=== PATIENT | male | born 1980 | race Caucasian/White ===

== ENCOUNTER 2018-08-29 09:04 | Emergency (ER) | payer MEDICAID ==
[~2018-08-29] VITALS: Ht 172.7 cm; Wt 76.2 kg
[2018-08-29 09:09] VITALS: BP_SYST 135; BP_SYST 148; BP_DIAS 101; BP_DIAS 92
--- NOTE | 2018-08-29 09:20 | NUR ---
PT AMBULATED TO ER BED 10
--- NOTE | 2018-08-29 09:21 | NUR ---
DR. CHAN BEDSIDE EVALUATING PT
[2018-08-29] MEDS ORDERED: ACYCLOVIR 200 MG CAP PO ONE (09:35)
[2018-08-29] MEDS ORDERED: predniSONE 20 MG TAB PO ONE (09:35)
--- NOTE | 2018-08-29 09:37 | NUR ---
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
--- NOTE | 2018-08-29 09:41 | NUR ---
Patient discharged with v/s stable. Written and verbal after care instructions given and explained. Patient alert, oriented and verbalized understanding of instructions. Ambulatory with steady gait. All questions addressed prior to discharge. ID band removed. Patient advised to follow up with PMD. Rx of PREDNISONE/ACYCLOVIR given. Patient educated on indication of medication including possible reaction and side effects. Opportunity to ask questions provided and answered.
[2018-08-29 09:45] VITALS: BP 135/92
== END 2018-08-29 09:41 | disposition home or self-care (01) ==
LOC: MED 09:04
DX: G51.0 Bell's palsy (principal)
CPT/HCPCS: 99283; J7512

== ENCOUNTER 2018-09-21 16:07 | Emergency (ER) | payer MEDICAID ==
[~2018-09-21] VITALS: Ht 170.2 cm; Wt 70.3 kg
[2018-09-21 16:23] VITALS: BP 146/90
--- NOTE | 2018-09-21 16:31 | NUR ---
C/O RASH TO CHEST & BACK X2 WEEKS. PT STATES HE WAS GIVEN PREDNISONE & ACYCLOVIR ON August WHEN HE WAS SEEN AT [facility] AND AFTER TAKING IT FOR A FEW DAYS HE DEVELOPED A RASH. PT DENIES ANY OTHER COMPLAINTS AT THIS TIME. DIFFUSE RED, BUMPY RASH NOTED TO UPPER CHEST AND ENTIRE BACK. PT PLACED IN GOWN, BED IN LOW POSITION, SIDE RAIL UP X1
--- NOTE | 2018-09-21 16:31 | NUR ---
DR. JAQUEZ AT BEDSIDE EVALUATING PT
[2018-09-21] MEDS ORDERED: DEXAMETHASONE 10 MG/ML VIAL IM ONE (16:35)
[2018-09-21 17:02] VITALS: BP 146/90
--- NOTE | 2018-09-21 17:02 | NUR ---
Patient discharged with v/s stable. Written and verbal after care instructions given and explained. Patient alert, oriented and verbalized understanding of instructions. Ambulatory with steady gait. All questions addressed prior to discharge. ID band removed. Patient advised to follow up with PMD. Rx of prednisone, hydrocortisone, and benadryl given. Patient educated on indication of medication including possible reaction and side effects. Opportunity to ask questions provided and answered.
== END 2018-09-21 17:00 | disposition home or self-care (01) ==
LOC: MED 16:07
DX: T78.40XA Allergy, unspecified, initial encounter (principal); X58.XXXA Exposure to other specified factors, initial encounter
CPT/HCPCS: 96372; 99283; J1100

== ENCOUNTER 2019-02-07 08:20 | Emergency (ER) | payer MEDICAID ==
[~2019-02-07] VITALS: Ht 170.2 cm; Wt 74.8 kg
[2019-02-07 08:22] VITALS: BP 138/78
--- NOTE | 2019-02-07 08:33 | NUR ---
38 Y/O M C/O BILATERAL EYE PAIN X5 WITH REDNESS. PT STATED HE WAS WORKING WITH STRONG CHEMICALS YESTERDAY, AWOKE TODAY WITH ITCHING, RED EYES. THERE IS NO DISCHARGE, PT STATES NO BLURRY VISSION. PT POSITIONED IN BED FOR COMFORT, BED LOWERED, X1 SIDE RAIL IN PLACE [facility]
--- NOTE | 2019-02-07 08:48 | NUR ---
EVALUATING PT AT BEDSIDE.
--- NOTE | 2019-02-07 09:00 | NUR ---
PT POSITIONED SUPINE WITH MEGAN LENSES IN PLACE, BILATERAL EYES. 500 ML NS RUNNING ON EACH EYE. PT TOLERATING PROCEDURE WELL.
--- NOTE | 2019-02-07 09:14 | NUR ---
PT REASSESSED WITH MEGAN LENSES, IRRIGATION RUNNING WITHOUT DIFFICULTY. TOWELS CHANGED, POSITIONED TO KEEP WATER FROM ENTERING EARS. PT TOLERATING WELL. AT [facility].
--- NOTE | 2019-02-07 09:42 | NUR ---
PT REASSESSED WITH MEGAN LENSES IN PLACE, NS FLUID CONTINUING TO RUN, PT TOLERATING WITHOUT DIFFICULTIES. AT BEDSIDE.
--- NOTE | 2019-02-07 10:16 | NUR ---
PT REASSESSED, NORMAL SALINE RUNNING, MEGAN LENSES IN PLACE, PT TOLERATING WELL. AT BEDSIDE.
--- NOTE | 2019-02-07 10:39 | NUR ---
MEGAN LENSES REMOVED WITHOUT DIFFICULTY, 500ML NS WAS USED ON EACH EYE FOR IRRIGATION. PATIENT TOLERATED TREATMENT WELL. POSITIONED IN BED FOR COMFORT, LOWERED TO LOWEST POSITION, SIDE RAIL X1 IN PLACE. AT BEDSIDE.
[2019-02-07 11:09] VITALS: BP 145/100
--- NOTE | 2019-02-07 11:09 | NUR ---
Patient discharged with v/s stable. Written and verbal after care instructions given and explained. Patient alert, oriented and verbalized understanding of instructions. Ambulatory with steady gait. All questions addressed prior to discharge. ID band removed. Patient advised to follow up with PMD. Rx of KETOROLAC tROMETHAMINE given. Patient educated on indication of medication including possible reaction and side effects. Opportunity to ask questions provided and answered.
== END 2019-02-07 11:09 | disposition home or self-care (01) ==
LOC: MED 08:20
DX: H10.213 Acute toxic conjunctivitis, bilateral (principal)
CPT/HCPCS: 99283

== ENCOUNTER 2020-07-05 17:39 | Emergency (ER) | payer MEDICAID ==
[~2020-07-05] VITALS: Ht 175.3 cm; Wt 73.9 kg
[2020-07-05 17:43] VITALS: BP 151/87
--- NOTE | 2020-07-05 17:46 | NUR ---
Patient ambulated to bed 4. RN evaluating the patient at bedside.
--- NOTE | 2020-07-05 17:48 | NUR ---
40 Y/O MALE C/O BILATERAL LOWER LEG PAIN S/P RECEIVING 2ND MODERNA VACCINE YESTERDAY. PATIENT STATES THAT PAIN IS AT A 8/10, DENIES ANY RECENT ACCIDENT OR INJURY. NO REDNESS/SWELLING OR WARMTH NOTED AT THIS TIME. SKIN INTACT. NO PMH NKDA
[2020-07-05] MEDS ORDERED: ACETAMINOPHEN EXTRA STRENGTH 500 MG TAB PO ONE (18:20)
[2020-07-05] MEDS ORDERED: ACET-2619 PO (18:24)
[2020-07-05 18:40] VITALS: BP 151/87
== END 2020-07-05 18:40 | disposition home or self-care (01) ==
LOC: MED 17:39
DX: R42 Dizziness and giddiness (principal); T50.B95A Adverse effect of other viral vaccines, initial encounter; Y92.89 Other specified places as the place of occurrence of the external cause
CPT/HCPCS: 99282